=== PATIENT | female | born 1975 | race Caucasian/White ===

== ENCOUNTER 2018-07-17 19:03 | Emergency (ER) | payer MEDICAID ==
[2018-07-17] MEDS ORDERED: Sodium Chloride 0.9% 10 ML Syringe FLUSH PRN (20:05)
[2018-07-17] MEDS ORDERED: Sodium Chloride 0.9% 1,000 ML IV SCH (20:30)
[2018-07-17] MEDS ORDERED: Misoprostol 200 MCG Tab PO ONE (22:44)
--- NOTE | 2018-07-17 22:55 | EDM.PDOC ---
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 Patient states her last menstrual cycle was mid March. She she took a home test last week which was positive. Today started experiencing some spotting with small clots this morning. Just prior to arrival patient soaked 3 pads in 1 hour with heavy bleeding and clots present. Patient states the cramping to the lower abdomen is mild to moderate intensity. She is mildly nauseated. At times complains of some lightheadedness. She has not noticed any tissue with passing of blood. She has not been on any control. Patient recently moved from [place] to [place] one week ago. Has not established medical care. She does have a history of hypertension and is on spironolactone and labetalol. Surgical history none. Patient does not smoke. Alcohol use rarely. Recreational drug use none. history includes: 5 para 3 miscarriage 1 0. 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 ED EXAM - Physical Exam Exam: See Below Exam Limited By: No Limitations General Appearance: Alert, WD/WN, No Apparent Distress Ears: Hearing Grossly Normal Nose: Normal Inspection Throat/Mouth: Normal Voice, No Airway Compromise Neck: Normal Inspection, Supple Respiratory/Chest: No Respiratory Distress, Lungs Clear, Normal Breath Sounds, No Accessory Muscle Use Cardiovascular: Normal Peripheral Pulses, Regular Rate, Rhythm, No Murmur GI/Abdominal Exam: Normal Bowel Sounds, Soft, No Organomegaly, No Distention, Tender (Suprapubic region. No adnexal tenderness bilaterally.) (Female) Exam: Cervical Dilatation (1-2 cm), Cervical Discharge (blood clot to the cervical os unable to be expelled. ), Vaginal Bleeding. No: Tissue Present in Cervix/Vagina, Uterine Tenderness, Vaginal Tears Back Exam: Normal Inspection Extremities: Other (Blood dried to the feet and lower legs from vaginal bleeding ) Neurological: Alert, Oriented, CN II-XII Intact, Normal Cognition, No Motor/ Sensory Deficits Psychiatric: Normal Affect, Normal Mood Skin Exam: Warm, Dry, Intact, Normal Color Course - Vital Signs Last Recorded V/S: Last Vital Signs Temp 97.4 F 07/17/18 19:19 Pulse 97 07/17/18 19:19 Resp 18 07/17/18 19:19 BP 181/95 H 07/17/18 19:19 Pulse Ox 97 07/17/18 19:19 - Orders/Labs/Meds Orders: Active Orders 24 hr Category Date Time Status Peripheral IV Care [RC] . DIRECTED Care 07/17/18 20:05 Active OB Transvaginal [US] Stat Exams 07/17/18 20:05 Taken Sodium Chloride 0.9% [Normal Saline] 1,000 ml Med 07/17/18 20:30 Active IV ASDIRECTED Sodium Chloride 0.9% [Saline Flush] Med 07/17/18 20:05 Active 10 ml FLUSH ASDIRECTED PRN Peripheral IV Insertion Adult [OM.PC] Routine Oth 07/17/18 20:05 Ordered Medication Orders Sodium Chloride (Normal Saline) 1,000 mls @ 150 mls/hr IV ASDIRECTED ADINA Last Admin: 07/17/18 20:32 Dose: 150 mls/hr Sodium Chloride (Saline Flush) 10 ml FLUSH ASDIRECTED PRN PRN Reason: Keep Vein Open Last Admin: 07/17/18 20:32 Dose: 10 ml Labs: Laboratory Tests 07/17/18 07/17/18 07/17/18 Range/Units 19:30 19:30 19:30 WBC 13.42 H (3.98-10.04) K/mm3 RBC 4.48 (3.98-5.22) M/mm3 Hgb 12.3 (11.2-15.7) gm/L Hct 37.6 (34.1-44.9) % MCV 83.9 (79.4-94.8) fl MCH 27.5 (25.6-32.2) pg MCHC 32.7 (32.2-35.5) g/dl RDW Std Deviation 43.5 (36.4-46.3) fL Plt Count 298 (182-369) K/mm3 MPV 10.9 (9.4-12.3) fl Neutrophils % (Manual) 75 H (40-60) % Band Neutrophils % 0 (0-10) % Lymphocytes % (Manual) 24 (20-40) % Atypical Lymphs % 0 % Monocytes % (Manual) 0 L (2-10) % Eosinophils % (Manual) 1 (0.7-5.8) % Basophils % (Manual) 0 L (0.1-1.2) Platelet Estimate Adequate RBC Morph Comment Normal Sodium 139 (136-145) mEq/L Potassium 3.8 (3.5-5.1) mEq/L Chloride 103 (98-107) mEq/L Carbon Dioxide 24 (21-32) mEq/L Anion Gap 15.8 H (5-15) BUN 19 H (7-18) mg/dL Creatinine 1.0 (0.55-1.02) mg/dL Est Cr Clr Drug Dosing 72.00 mL/min Estimated GFR (MDRD) > 60 (>60) mL/min BUN/Creatinine Ratio 19.0 H (14-18) Glucose 109 H (74-106) mg/dL Calcium 9.1 (8.5-10.1) mg/dL Total Bilirubin 0.2 (0.2-1.0) mg/dL AST 17 (15-37) U/L ALT 22 (14-59) U/L Alkaline Phosphatase 54 (46-116) U/L C-Reactive Protein 3.3 H* (<1.0) mg/dL Total Protein 7.5 (6.4-8.2) g/dl Albumin 3.0 L (3.4-5.0) g/dl Globulin 4.5 gm/dL Albumin/Globulin Ratio 0.7 L (1-2) HCG, Quant 05356.0 mIU/mL Urine Color (Yellow) Urine Appearance (Clear) Urine pH (5.0-8.0) Ur Specific [place] (1.005-1.030) Urine Protein (Negative) Urine Glucose (UA) (Negative) Urine Ketones (Negative) Urine Occult Blood (Negative) Urine Nitrite (Negative) Urine Bilirubin (Negative) Urine Urobilinogen (0.2-1.0) Ur Leukocyte Esterase (Negative) Urine RBC (0-5) /hpf Urine WBC (0-5) /hpf Ur Epithelial Cells (0-5) /hpf Urine Bacteria (FEW) /hpf Urine Mucus (FEW) /hpf Blood Type O POSITIVE 07/17/18 Range/Units 21:00 WBC (3.98-10.04) K/mm3 RBC (3.98-5.22) M/mm3 Hgb (11.2-15.7) gm/L Hct (34.1-44.9) % MCV (79.4-94.8) fl MCH (25.6-32.2) pg MCHC (32.2-35.5) g/dl RDW Std Deviation (36.4-46.3) fL Plt Count (182-369) K/mm3 MPV (9.4-12.3) fl Neutrophils % (Manual) (40-60) % Band Neutrophils % (0-10) % Lymphocytes % (Manual) (20-40) % Atypical Lymphs % % Monocytes % (Manual) (2-10) % Eosinophils % (Manual) (0.7-5.8) % Basophils % (Manual) (0.1-1.2) Platelet Estimate RBC Morph Comment Sodium (136-145) mEq/L Potassium (3.5-5.1) mEq/L Chloride (98-107) mEq/L Carbon Dioxide (21-32) mEq/L Anion Gap (5-15) BUN (7-18) mg/dL Creatinine (0.55-1.02) mg/dL Est Cr Clr Drug Dosing mL/min Estimated GFR (MDRD) (>60) mL/min BUN/Creatinine Ratio (14-18) Glucose (74-106) mg/dL Calcium (8.5-10.1) mg/dL Total Bilirubin (0.2-1.0) mg/dL AST (15-37) U/L ALT (14-59) U/L Alkaline Phosphatase (46-116) U/L C-Reactive Protein (<1.0) mg/dL Total Protein (6.4-8.2) g/dl Albumin (3.4-5.0) g/dl Globulin gm/dL Albumin/Globulin Ratio (1-2) HCG, Quant mIU/mL Urine Color Red H (Yellow) Urine Appearance Turbid H (Clear) Urine pH 5.5 (5.0-8.0) Ur Specific [place] > or = 1.030 (1.005-1.030) Urine Protein 2+ H (Negative) Urine Glucose (UA) Negative (Negative) Urine Ketones Trace H (Negative) Urine Occult Blood 3+ H (Negative) Urine Nitrite Negative (Negative) Urine Bilirubin 1+ H (Negative) Urine Urobilinogen 0.2 (0.2-1.0) Ur Leukocyte Esterase Negative (Negative) Urine RBC Too numerous to cnt H (0-5) /hpf Urine WBC 0-5 (0-5) /hpf Ur Epithelial Cells 0-5 (0-5) /hpf Urine Bacteria Moderate H (FEW) /hpf Urine Mucus Not seen (FEW) /hpf Blood Type Meds: Medications Generic Name Dose Route Start Last Admin Trade Name Freq PRN Reason Stop Dose Admin Sodium Chloride 1,000 mls @ 150 mls/hr 07/17/18 20:30 07/17/18 20:32 Normal Saline IV 150 mls/hr ASDIRECTED ADINA Administration Sodium Chloride 10 ml 07/17/18 20:05 07/17/18 20:32 Saline Flush FLUSH 10 ml ASDIRECTED PRN Administration Keep Vein Open Discontinued Medications Generic Name Dose Route Start Last Admin Trade Name Freq PRN Reason Stop Dose Admin Misoprostol 800 mcg 07/17/18 22:44 07/17/18 23:30 Cytotec PO 07/17/18 22:45 800 mcg ONETIME ONE Administration - Re-Assessments/Exams Free Text/Narrative Re-Assessment/Exam: IV established with normal saline IV fluids. Initial labs and studies will include: CBC, chem 14, hCG, UA, CRP, ABO/Rh type, and OB transvaginal ultrasound. Per nursing staff patient had 2 large clots pass with changing. Patient continues to have some sensation of bleeding present with examination. Labs reviewed: White blood cell count 13.42, creatinine 1.0, hemoglobin 12.3, CRP 3.3, hCG 20,356. UA grossly positive for blood. Blood type O+. Ultrasound report impression: Mildly enlarged uterus. No sign of intrauterine gestation. Retained products of conception are suspected. The endometrium measures about 19 mm in caliber. A status is in question or last muscles. Is uncertain a repeat ultrasound in 7-10 days may be of benefit. 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 Recommended Cytotec 800 g now by mouth while in the ED. Vaginal exam to ensure all blood and tissue products are clean out of the vaginal os prior to discharge. Appointment with him next week with qualitative hCG one hour prior to appointment. Take vitamins one tablet every a.m. and also place the patient on iron supplement with vitamin C twice a day. 07/17/18 23:15 Vaginal examination revealed clot within the cervical os with dilatation of 1-2 cm. No blood retained within the vaginal vault. Will discharge patient with instructions as documented. The patient remained hemodynamically stable while under my care in the E.D. I discussed the concerning symptoms for which to return to the E.D. with the patient. The patient verbalized understanding. All questions were answered. Departure - Departure Time of Disposition: 23:17 Disposition: Home, Self-Care 01 Condition: Good Clinical Impression: Incomplete - Discharge Information Prescriptions: Iron,Carbonyl/Ascorbic Acid [Iron 100-Vitamin C Tablet] 1 each PO BID #60 tablet Misoprostol [Cytotec] 400 mcg PO ONETIME #2 tablet Instructions: Incomplete Miscarriage Referrals: Liborio Shirley MD [Physician] - Forms: ED Department Discharge Additional Instructions: Take the Cytotec 2 tabs tomorrow night as instructed.You will have increased cramping to the lower abdomen with increased bleeding while taking the Cytotec. Utilize ibuprofen 600 mg every 6 hours for pain with food and water. Take the iron supplement as directed twice a day. Take a vitamin every morning. Call and make an appointment with Dr. Shirley this next week. Lab work will be obtained half-hour prior to appointment time. Please go to the lab to have this conducted. Please return to the ED if you develop any new or worsening symptoms as discussed. - My Orders Last 24 Hours: My Active Orders 07/17/18 20:05 Peripheral IV Care [RC] . DIRECTED OB Transvaginal [US] Stat Sodium Chloride 0.9% [Saline Flush] 10 ml FLUSH ASDIRECTED PRN Peripheral IV Insertion Adult [OM.PC] Routine 07/17/18 20:30 Sodium Chloride 0.9% [Normal Saline] 1,000 ml IV ASDIRECTED - Assessment/Plan Last 24 Hours: My Active Orders 07/17/18 20:05 Peripheral IV Care [RC] . DIRECTED OB Transvaginal [US] Stat Sodium Chloride 0.9% [Saline Flush] 10 ml FLUSH ASDIRECTED PRN Peripheral IV Insertion Adult [OM.PC] Routine 07/17/18 20:30 Sodium Chloride 0.9% [Normal Saline] 1,000 ml IV ASDIRECTED
--- NOTE | 2018-07-20 10:08 | US ---
First trimester obstetrical ultrasound: Multiple real-time images were obtained transvaginally. Comparison: No previous study. Thickened endometrium is seen measuring 1.9 cm possibly due to retained products of conception. No gestational sac is seen. No myometrial abnormality identified within the uterus. Ovaries are not able to be visualized. No free fluid is seen. Impression: 1. Thickened endometrium possibly due to retained products of conception. Diagnostic code #3 I agree with preliminary report issued by [employer] ([facility] preliminary report dictated on 07/17/18, 10:53 PM Central Time)
== END 2018-07-17 23:34 | disposition home or self-care (01) ==
LOC: JD.ED 19:03
DX: O03.4 Incomplete spontaneous abortion without complication (principal); I10 Essential (primary) hypertension; Z87.891 Personal history of nicotine dependence; Z79.899 Other long term (current) drug therapy
CPT/HCPCS: 36415; 76817; 80053; 81001; 84702; 85007; 85027; 86140; 86900; 86901; 96360; 96361; 99284; A9270; J7040; J7050

== ENCOUNTER 2024-07-26 01:35 | Inpatient (IN) | payer BC ==
[2024-07-26] MEDS: Albuterol/Ipratropium 3.0-0.5 MG/3 ML Neb Soln NEB ONE (02:27)
[2024-07-26] MEDS: cefTRIAXone 1 GM in Sodium Chloride 0.9% 100 ML IV ONE (03:02)
[2024-07-26 03:03] LABS: BASOPHILS PERCENT AUTO 0.1 % (0.0-1.0); EOSINOPHILS PERCENT AUTO 0.1 % (0.0-6.0); HEMATOCRIT 38.7 % (37.0-47.0); IMMATURE GRAN ABSOLUTE AUTO 0.28 K/mm3 (0.00-0.05); LYMPHOCYTES ABSOLUTE AUTO 1.6 K/mm3 (1.0-4.8); LYMPHOCYTES PERCENT AUTO 11.4 % (24.0-44.0); MEAN CORPUSCULAR HEMOGLOBIN 27.8 pg (28.0-32.0); MEAN CORPUSCULAR HGB CONC 33.6 g/dl (32.0-36.0); MEAN CORPUSCULAR VOLUME 82.9 fl (83.0-99.0); MEAN PLATELET VOLUME 9.8 fl (9.4-12.3); MONOCYTES ABSOLUTE AUTO 0.6 K/mm3 (0.0-0.8); MONOCYTES PERCENT AUTO 4.3 % (0.0-8.0); NEUTROPHILS ABSOLUTE AUTO 11.3 K/mm3 (1.8-7.7); NEUTROPHILS PERCENT AUTO 82.1 % (41.0-71.0); PLATELET COUNT,PLT 405 K/mm3 (150-400); RED BLOOD CELL COUNT 4.67 M/mm3 (4.10-5.30); WHITE BLOOD CELL COUNT,WBC 13.81 K/mm3 (3.9-11.3)
[2024-07-26 03:35] LABS: A/G RATIO 0.6 (1-2); ALBUMIN 2.6 g/dl (3.4-5.0); ANION GAP 13.7 (5-15); BILIRUBIN TOTAL 0.3 mg/dL (0.2-1.0); C-REACTIVE PROTEIN 12.11 mg/dL (<0.30); CALCIUM 9.3 mg/dL (8.5-10.1); CREATININE 0.9 mg/dL (0.55-1.02); EST CRCL DRUG DOSING (CG) 75.15 mL/min; MAGNESIUM 2.1 mg/dL (1.8-2.4); POTASSIUM,K 3.7 mEq/L (3.5-5.1); PROTEIN TOTAL,TP 7.3 g/dl (6.4-8.2)
[2024-07-26] MEDS: Azithromycin 500 MG in Sodium Chloride 0.9% 250 ML IV ONE (03:53)
[2024-07-26 03:56] LABS: APPEARANCE,URINE CLEAR (Clear); BILIRUBIN,URINE NEGATIVE (Negative); COLOR,URINE YELLOW (Yellow); GLUCOSE,URINE NEGATIVE (Negative); KETONES,URINE NEGATIVE (Negative); LEUKOCYTE ESTERASE,URINE NEGATIVE (Negative); NITRITE,URINE NEGATIVE (Negative); OCCULT BLOOD,URINE 1+ (Negative); PROTEIN,URINE NEGATIVE (Negative); UROBILINOGEN,URINE 0.2 (0.2-1.0)
[2024-07-26 04:08] LABS: CORONAVIRUS COVID-19 NAA NEGATIVE (NEGATIVE); INFLUENZA A NAA NEGATIVE (NEGATIVE); RESPIRATORY SYNCYTIAL VIR NAA NEGATIVE (NEGATIVE)
[2024-07-26 04:18] LABS: BACTERIA,URINE FEW /hpf (FEW); EPITHELIAL CELLS,URINE 0-5 /hpf (0-5); MUCUS,URINE NOT SEEN /hpf (FEW); RBC,URINE 0-5 /hpf (0-5); WBC,URINE 0-5 /hpf (0-5)
[2024-07-26 04:19] LABS: AMORPHOUS SEDIMENT,URINE RARE /hpf (NOT SEEN)
[2024-07-26] MEDS: Sodium Chloride 0.9% 1,000 ML IV SCH ×2 (05:18→12:37)
[2024-07-26] MEDS ORDERED: Acetaminophen 325 MG Tab PO PRN (08:12)
[2024-07-26] MEDS: Spironolactone 100 MG Tab PO SCH (08:44)
[2024-07-26] MEDS: Labetalol 100 MG Tab PO SCH (08:44)
[2024-07-26] MEDS: Enoxaparin 40 MG/0.4 ML Syringe SUBCUT SCH (08:44)
[2024-07-26] MEDS: predniSONE 20 MG Tab PO SCH (09:00)
[2024-07-26] MEDS: Iopamidol 755 Mg/ML 100 ML Bottle IVPUSH ONE (11:52)
[2024-07-26] MEDS: Sodium Chloride 0.9% 100 ML IV SCH (11:52)
[2024-07-26] MEDS: Sodium Chloride 0.9% 10 ML Syringe FLUSH PRN (11:52)
[2024-07-26] MEDS: Albuterol/Ipratropium 3.0-0.5 MG/3 ML Neb Soln NEB SCH (13:52)
[2024-07-27] MEDS: cefTRIAXone 1 GM in Sodium Chloride 0.9% 100 ML IV SCH (01:32)
[2024-07-27] MEDS: Azithromycin 500 MG in Sodium Chloride 0.9% 250 ML IV SCH (02:32)
[2024-07-27 04:36] LABS: BASOPHILS ABSOLUTE AUTO 0.1 K/mm3 (0.0-0.2); BASOPHILS PERCENT AUTO 0.3 % (0.0-1.0); EOSINOPHILS ABSOLUTE AUTO 0.1 K/mm3 (0.0-0.4); EOSINOPHILS PERCENT AUTO 0.3 % (0.0-6.0); HEMATOCRIT 35.6 % (37.0-47.0); HEMOGLOBIN 11.6 gm/dl (12.0-16.0); IMMATURE GRAN ABSOLUTE AUTO 0.54 K/mm3 (0.00-0.05); IMMATURE GRAN PERCENT AUTO 3.8 % (0.0-0.4); LYMPHOCYTES ABSOLUTE AUTO 3.3 K/mm3 (1.0-4.8); LYMPHOCYTES PERCENT AUTO 22.8 % (24.0-44.0); MEAN CORPUSCULAR HEMOGLOBIN 28.1 pg (28.0-32.0); MEAN CORPUSCULAR HGB CONC 32.6 g/dl (32.0-36.0); MEAN CORPUSCULAR VOLUME 86.2 fl (83.0-99.0); MEAN PLATELET VOLUME 9.6 fl (9.4-12.3); MONOCYTES ABSOLUTE AUTO 0.7 K/mm3 (0.0-0.8); MONOCYTES PERCENT AUTO 4.5 % (0.0-8.0); NEUTROPHILS ABSOLUTE AUTO 9.7 K/mm3 (1.8-7.7); NEUTROPHILS PERCENT AUTO 68.3 % (41.0-71.0); PLATELET COUNT,PLT 378 K/mm3 (150-400); RED BLOOD CELL COUNT 4.13 M/mm3 (4.10-5.30); WHITE BLOOD CELL COUNT,WBC 14.29 K/mm3 (3.9-11.3)
[2024-07-27 04:53] LABS: ANION GAP 11.7 (5-15); C-REACTIVE PROTEIN 6.62 mg/dL (<0.30); CALCIUM 8.6 mg/dL (8.5-10.1); CREATININE 0.9 mg/dL (0.55-1.02); EST CRCL DRUG DOSING (CG) 75.15 mL/min; POTASSIUM,K 3.7 mEq/L (3.5-5.1)
[2024-07-27 06:15] LABS: SLIDE REVIEW ABNORMAL SMEAR
[2024-07-27] MEDS: amLODIPine 5 MG Tab PO SCH (09:01)
[2024-07-27] MEDS: Labetalol 100 MG/20 ML MDV IVPUSH ONE ×2 (11:36→22:50)
[2024-07-27] MEDS: Lisinopril 10 MG Tab PO ONE (18:19)
[2024-07-28 05:32] LABS: BASOPHILS ABSOLUTE AUTO 0.1 K/mm3 (0.0-0.2); BASOPHILS PERCENT AUTO 0.8 % (0.0-1.0); EOSINOPHILS ABSOLUTE AUTO 0.1 K/mm3 (0.0-0.4); EOSINOPHILS PERCENT AUTO 0.8 % (0.0-6.0); HEMATOCRIT 37.8 % (37.0-47.0); HEMOGLOBIN 12.4 gm/dl (12.0-16.0); IMMATURE GRAN ABSOLUTE AUTO 0.94 K/mm3 (0.00-0.05); IMMATURE GRAN PERCENT AUTO 5.8 % (0.0-0.4); LYMPHOCYTES ABSOLUTE AUTO 4.5 K/mm3 (1.0-4.8); LYMPHOCYTES PERCENT AUTO 27.6 % (24.0-44.0); MEAN CORPUSCULAR HEMOGLOBIN 27.9 pg (28.0-32.0); MEAN CORPUSCULAR HGB CONC 32.8 g/dl (32.0-36.0); MEAN CORPUSCULAR VOLUME 85.1 fl (83.0-99.0); MEAN PLATELET VOLUME 9.5 fl (9.4-12.3); MONOCYTES ABSOLUTE AUTO 0.7 K/mm3 (0.0-0.8); MONOCYTES PERCENT AUTO 4.4 % (0.0-8.0); NEUTROPHILS ABSOLUTE AUTO 9.8 K/mm3 (1.8-7.7); NEUTROPHILS PERCENT AUTO 60.6 % (41.0-71.0); PLATELET COUNT,PLT 419 K/mm3 (150-400); RED BLOOD CELL COUNT 4.44 M/mm3 (4.10-5.30); WHITE BLOOD CELL COUNT,WBC 16.22 K/mm3 (3.9-11.3)
[2024-07-28 06:24] LABS: SLIDE REVIEW ABNORMAL SMEAR
[2024-07-28 07:21] LABS: ANION GAP 12.4 (5-15); EST CRCL DRUG DOSING (CG) 67.63 mL/min; POTASSIUM,K 3.4 mEq/L (3.5-5.1)
[2024-07-28] MEDS ORDERED: Labetalol 100 MG/20 ML MDV IVPUSH ONE (08:09)
[2024-07-28] MEDS: Lisinopril 10 MG Tab PO SCH (09:31)
[2024-07-28] MEDS: Spironolactone 100 MG Tab PO SCH (09:31)
== END 2024-07-28 14:15 | disposition home or self-care (01) | DRG 720 ==
LOC: JD.ED 01:35 → JD.MS 05:03
PROVIDERS: ADMIT Family Medicine; ATTEND Family Medicine
DX: A41.9 Sepsis, unspecified organism (principal); J96.01 Acute respiratory failure with hypoxia; J18.9 Pneumonia, unspecified organism; J45.901 Unspecified asthma with (acute) exacerbation; I10 Essential (primary) hypertension; R59.0 Localized enlarged lymph nodes; Z79.52 Long term (current) use of systemic steroids; Z79.899 Other long term (current) drug therapy
CPT/HCPCS: 0241U; 36415; 71046; 71046-26; 71275; 71275-26; 80048; 80053; 81001; 83605; 83735; 84484; 85025; 85379; 86140; 87040; 87641; 87899; 93005; 93010; 94640; 94761; 96365; 96367; 99223; 99233; 99239; 99285; 99285-25; A9270-GY; J0456; J0696; J1650; J1921; J3490; J7030; J7050; J7512; J7620-GY; Q9967

== ENCOUNTER 2025-07-21 08:27 | Emergency (ER) | payer BC ==
[2025-07-21 09:34] LABS: BASOPHILS ABSOLUTE AUTO 0.0 K/mm3 (0.0-0.2); BASOPHILS PERCENT AUTO 0.4 % (0.0-1.0); EOSINOPHILS ABSOLUTE AUTO 0.2 K/mm3 (0.0-0.4); EOSINOPHILS PERCENT AUTO 2.0 % (0.0-6.0); IMMATURE GRAN ABSOLUTE AUTO 0.04 K/mm3 (0.00-0.05); IMMATURE GRAN PERCENT AUTO 0.4 % (0.0-0.4); LYMPHOCYTES ABSOLUTE AUTO 2.3 K/mm3 (1.0-4.8); LYMPHOCYTES PERCENT AUTO 22.5 % (24.0-44.0); MEAN PLATELET VOLUME 9.8 fl (9.4-12.3); MONOCYTES ABSOLUTE AUTO 0.5 K/mm3 (0.0-0.8); MONOCYTES PERCENT AUTO 4.9 % (0.0-8.0); NEUTROPHILS ABSOLUTE AUTO 7.2 K/mm3 (1.8-7.7); NEUTROPHILS PERCENT AUTO 69.8 % (41.0-71.0); NRBC ABSOLUTE 0.00 (0.00-0.02); NRBC PERCENT 0.0 % (0.0-0.2); PLATELET COUNT,PLT 342 K/mm3 (150-400); RED BLOOD CELL COUNT 4.56 M/mm3 (4.10-5.30); WHITE BLOOD CELL COUNT,WBC 10.34 K/mm3 (3.9-11.3)
[2025-07-21 10:08] LABS: A/G RATIO 0.8 (1-2); ALANINE AMINOTRANSFERASE,ALT 18.0 U/L (14-59); ASPARTATE AMNIOTRANSFERASE,AST 13.0 U/L (15-37); BILIRUBIN TOTAL 0.3 mg/dL (0.2-1.0); BLOOD UREA NITROGEN,BUN 14.0 mg/dL (7-18); CARBON DIOXIDE,CO2 30.0 mEq/L (21-32); CHLORIDE,CL 102.0 mEq/L (98-107); CREATININE 0.9 mg/dL (0.55-1.02); EST CRCL DRUG DOSING (CG) 74.34 mL/min; ESTIMATED GFR 79.0 mL/min (>60); GLUCOSE RANDOM 93.0 mg/dL (70-99); POTASSIUM,K 4.0 mEq/L (3.5-5.1); PROTEIN TOTAL,TP 6.7 g/dl (6.4-8.2); SODIUM,NA 136.0 mEq/L (136-145); TROPONIN I HIGH SENSITIVITY 37.0 pg/mL (<=51); TSH 2.144 uIU/mL (0.358-3.74)
== END 2025-07-21 10:25 | disposition home or self-care (01) ==
LOC: JD.ED 08:27
DX: I10 Essential (primary) hypertension (principal); F41.9 Anxiety disorder, unspecified; J45.909 Unspecified asthma, uncomplicated; Z79.899 Other long term (current) drug therapy
CPT/HCPCS: 36415; 80053; 83735; 84443; 84484; 85025; 93005; 99285